=== PATIENT | male | born 1980 | race Caucasian/White ===

== ENCOUNTER → 2018-10-03 | Outpatient (CLI) | payer OTHER | LOC: M OUTALCOH 07:58 | PROVIDERS: ATTEND Psychiatry & Neurology Psychiatry | DX: Z03.89 Encounter for observation for other suspected diseases and conditions ruled out (principal) ==

== ENCOUNTER 2018-10-21 10:22 | Outpatient (RCR) | payer OTHER | END 2018-11-14 | LOC: M OUTALCOH 10:22 | PROVIDERS: ATTEND Psychiatry & Neurology Psychiatry | DX: Z03.89 Encounter for observation for other suspected diseases and conditions ruled out (principal); Z72.0 Tobacco use ==

== ENCOUNTER → 2019-03-06 | Outpatient (CLI) | payer OTHER | LOC: M OUTALCOH 07:51 | PROVIDERS: ATTEND Psychiatry & Neurology Addiction Medicine | DX: Z03.89 Encounter for observation for other suspected diseases and conditions ruled out (principal) ==

== ENCOUNTER 2019-03-13 08:51 | Outpatient (RCR) | payer OTHER | END 2019-03-17 | LOC: M OUTALCOH 08:51 | PROVIDERS: ATTEND Psychiatry & Neurology Addiction Medicine | DX: F14.10 Cocaine abuse, uncomplicated (principal); Z72.0 Tobacco use ==

== ENCOUNTER 2019-03-31 13:53 | Outpatient (RCR) | payer OTHER | END 2019-04-15 | LOC: M OUTALCOH 13:53 | PROVIDERS: ATTEND Psychiatry & Neurology Addiction Medicine | DX: F14.20 Cocaine dependence, uncomplicated (principal); F10.20 Alcohol dependence, uncomplicated; F12.20 Cannabis dependence, uncomplicated; Z72.0 Tobacco use ==

== ENCOUNTER → 2019-05-08 | Outpatient (CLI) | payer OTHER | LOC: M OUTALCOH 08:01 | PROVIDERS: ATTEND Psychiatry & Neurology Addiction Medicine | DX: F14.20 Cocaine dependence, uncomplicated (principal) ==

== ENCOUNTER 2019-05-15 11:02 | Outpatient (RCR) | payer OTHER | END 2019-05-16 | LOC: M OUTALCOH 11:02 | PROVIDERS: ATTEND Psychiatry & Neurology Addiction Medicine | DX: F14.20 Cocaine dependence, uncomplicated (principal); F10.10 Alcohol abuse, uncomplicated; Z72.0 Tobacco use ==

== ENCOUNTER 2019-06-14 08:30 | Outpatient (RCR) | payer OTHER | END 2019-06-15 | LOC: M OUTALCOH 08:30 | PROVIDERS: ATTEND Psychiatry & Neurology Addiction Medicine | DX: F14.20 Cocaine dependence, uncomplicated (principal); F10.10 Alcohol abuse, uncomplicated; Z72.0 Tobacco use ==

== ENCOUNTER 2019-06-20 14:10 | Outpatient (RCR) | payer OTHER | END 2019-07-16 | LOC: M OUTALCOH 14:10 | PROVIDERS: ATTEND Psychiatry & Neurology Addiction Medicine | DX: F14.20 Cocaine dependence, uncomplicated (principal); F10.10 Alcohol abuse, uncomplicated; Z72.0 Tobacco use ==